=== PATIENT | female | born 2000 | race African-American/Black ===

== ENCOUNTER 2024-07-07 19:52 | Emergency (ER) | payer OTHER, SELFPAY ==
--- NOTE | ~2024-07-07 | XR_ITS ---
CHEST RADIOGRAPH, PA AND LATERAL CLINICAL HISTORY: sob, cough, asthma . COMPARISON: None available TECHNIQUE: PA and lateral views of the chest. FINDINGS The cardiomediastinal silhouette is unremarkable. Peribronchial thickening is identified. The remainder of the lungs are clear Visualized osseous structures and soft tissues are unremarkable. IMPRESSION: Peribronchial thickening, without focal infiltrate or effusion. Reviewed, dictated and finalized at location A. ER OPERATOR
[2024-07-07 20:01] VITALS: BP 128/85; PULSE 95; RESP 22; TEMP 36.7; O2SAT 100
[2024-07-07 21:09] VITALS: O2SAT 100
[2024-07-07 21:12] VITALS: BP 130/93; PULSE 96; RESP 16; TEMP 37; O2SAT 100
--- OUTSIDE RECORDS SUMMARY | 2024-07-07 21:22 | XMS_ITS | Clinical Summary ---
Author Organization [address] Address [address] [facility] 5th [place] [address] Care Team Providers Care Supervisor Cook Room Name Role Phone Unknown, Notinfile Primary Care Provider Unavail able Allergies No known active allergies Medications levonorgestreL (KYLEENA) IUD 19.5 mg by intrauterine route 4 Active montelukast (SINGULAIR) 10 mg tablet Take 1 tablet (10 mg total) by mouth daily 3 Active Active Problems No known active problems Encounters Date Type Department Care Team Description 04/28/2024 11:40 AM OPERATOR CATALYST CONCENTRATION Lab [facility] [address] [place] [address] Pre-employment health screening examination 04/28/2024 Orders Only [facility] Healthcare Occupatiuonal Health [address] [facility] Room [address] (Third Floor) [place] [address] Kenneth Laws MD Pre-employment health screening examination (Primary Dx) from Last 3 Months Immunizations Name Administration Dates Next Due DTaP 03/03/2006, 3,2002,06/05,2002 HPV9 11/25/2015,04/08/2015 Hep A, Adult 01/10/2014 Hep A, Unspecified 03/03/2012 Hep B / HiB 05/28/2003 Hep B Vaccine 2002,2002 Hib (PRP-OMP) 2002,2002,2002 IPV 03/03/2006, 3,2002,05/03 Influenza, Quadrivalent, Gema l Culture-based MDCK, Preservative Free, Antibiotic Free, Intramuscular 03/18/2022 Influenza, Quadrivalent, Spl it, Intramuscular 04/13/2014 Influenza, Quadrivalent, Spl it, Preservative Free, Intramuscular 03/27/2023,06/26/2020,03/19/2020,04/24,03/11/2017,04/08/2015 Influenza, Trivalent, Cell Culture-based MDCK, Preservative Free, Antibiotic Free, Intramuscular 02/01/2024 MMR 02/01/2007,01/31/2003 Meningococcal MCV4P (Menactra) 11/23/2018,2012 PPD TEST 01/05/2023,12/31/2021,12/18/2021 Palivizumab 2002 Pneumococcal Conjugate 7-Valent 05/28/20 03,2002,2002,05/03 Tdap 01/06/2023,01/23/2013 Varicella 01/10/2014,01/31/2003 Social History Tobacco Use Types Packs/Day Years Used Date Smoking Tobacco: Never Assessed Comments Unknown Sex and Gender Information Value Date Recorded Sex Assigned at Not on file Legal Sex Female 8:30 AM CDT Gender Identity Not on file Sexual Orientation Not on file Obstetrics History Last Filed Vital Signs Vital Sign Reading Time Taken Comments Blood Pressure 124/81 03/03/2024 6:33 PM CDT Pulse 80 03/03/2024 6:33 PM CDT Temperature 36.7 ??C (98 ??F) 03/03/2024 6:33 PM CDT Respiratory Rate 20 03/03/2024 6:33 PM CDT Oxygen Saturation 98% 03/03/2024 6:33 PM CDT Inhaled Oxygen Concentration - - Weight 59 kg (130 lb) 03/03/2024 6:33 PM CDT Height 167.6 cm (5' 6 ) 03/03/2024 6:33 PM CDT Body Mass Index 20.98 03/03/2024 6:33 PM CDT Plan of Treatment Health Maintenance Due Date Last Done Comments Cervical Cancer Screening 2002 Depression Screening 2002 Hepatitis C Screening 2002 Pneumococcal vaccine <65 (1 of 1 - PPSV23 or PCV20) 01/23/2008 05/28/2003, 2002, 2002, Additional history exists Meningococcal B Vaccine (1 o f 2 - Patient Seeks Protection) 2018 Regular Well Visit/Exam 18-64 01/23/2020 Covid-19 Vaccine (3 - 2023-2 5 season) 2024 01/02/2021, 12/12/2020 DTaP/Tdap/Td Vaccine (8 - Td or Tdap) 01/06/2033 01/06/2023, 01/23/2013, 03/03/2006, Additional history exists Varicella Vaccines Completed 01/10/2014, 01/31/2003 HPV Vaccines Completed 11/25/2015, 04/08/2015 Influenza Vaccine Completed 02/01/2024, , 03/18/2022, Additional history exists Procedures Procedure Name Priority Date/Time Associated Diagnosis Comments T-SPOT.TB Routine 04/28/2024 12:01 PM OPERATOR CATALYST CONCENTRATION Pre-employment health screening examination from Last 3 Months Results * T-SPOT.TB Blood (04/28/2024 12:01 PM OPERATOR CATALYST CONCENTRATION) [facility] T-SPOT.TB Negative SeeBelow Comment: Normal Value: Negative A negative test result does not exclude the possibility of exposure to or infection with Mycobacterium tuberculosis (M. tuberculosis). ??Patients with recent exposure to TB infected individuals exhibiting a negative T-SPOT.TB result should be considered for retesting within 6 weeks or if other relevant clinical symptoms indicate. ??Results from T-SPOT.TB testing must be used in conjunction with each individual's epidemiological history, current medical status, and results of other diagnostic evaluations. ??The T-SPOT.TB test is qualitative and results are reported as positive, borderline or negative, given that the test controls perform as expected. In line with the Centers for Disease Control and Prevention's 2010 recommendation to report quantitative measurements alongside the qualitative result, the laboratory provides spot counts for informational purposes only. ??The T-SPOT.TB test should not be interpreted as a quantitative test. T-SPOT.TB Panel A Spot [facility] 0 [facility] Panel B Spot Count 2 [facility] T-SPOT.TB Negative Control Passed [facility] T-SPOT.TB Positive Control Passed [facility] W[facility] Comment: Test Performed at: [facility] [address] [place], [place] ??[id number] ? GLENN SO,PHD Blood 04/28/2024 12:0 1 PM OPERATOR CATALYST CONCENTRATION 04/28/2024 12:16 PM OPERATOR CATALYST CONCENTRATION Narrative [facility] - 04/30/2024 3:02 PM OPERATOR CATALYST CONCENTRATION Bill to [facility] [address] Patient is employed by/enrolled at:->[facility] us Kenneth Laws MD LAB MICROBIOLOGY - GENERAL OR DERABLES Final Result [facility] [address] [facility] Department [place] [address] from Last [address] [facility] CHOICE PLUS Care Teams Supervisor Cook Room Relationship Specialty Start Date End Date Unknown, Notinfile PCP - General 02/25/24
--- OUTSIDE RECORDS SUMMARY | 2024-07-07 21:22 | XMS_ITS | Referral Summary ---
Author Organization [facility] [address] Address [address] [facility] 5th [place] [address] Care Team Providers Care Work Order Detailer Name Role Phone Unknown, Notinfile Primary Care Provider Unavail able Encounters Date Type Department Care Team Description 04/28/2024 11:40 AM COAT FELLER Lab [facility] [address] [place] [address] Pre-employment health screening examination 04/28/2024 Orders Only [facility] Healthcare Occupatiuonal Health [address] [place] [address] Room 3420 (Third Floor) [place] [address] Kenneth Laws MD Pre-employment health screening examination (Primary Dx) from Last 3 Months Allergies No known active allergies Medications levonorgestreL (KYLEENA) IUD 19.5 mg by intrauterine route 4 Active montelukast (SINGULAIR) 10 mg tablet Take 1 tablet (10 mg total) by mouth daily 3 Active Active Problems No known active problems Immunizations Name Administration Dates Next Due DTaP [...] on file Sexual Orientation Not on file Last Filed Vital Signs Vital Sign Reading [...] 03/03/2024 6:33 PM CDT Plan of Treatment Not on file Procedures Procedure Name Priority Date/Time Associated Diagnosis Comments T-SPOT.TB Routine 04/28/2024 12:01 PM COAT FELLER Pre-employment health screening examination from Last 3 Months Results * T-SPOT.TB Blood (04/28/2024 12:01 PM COAT FELLER) [facility] T-SPOT.TB Negative SeeBelow Comment: Normal Value: Negative [...] test. T-SPOT.TB Panel [facility] Spot [facility] Panel B Spot Count 2 [facility] T-SPOT.TB Negative Control Passed [facility] T-SPOT.TB Positive Control Passed [facility] Comment: Test Performed at: [facility] [address] [place] [address] ??[phone] ? GLENN SO,PHD Blood 04/28/2024 12:0 1 PM COAT FELLER 04/28/2024 12:16 PM COAT FELLER Narrative [facility] - 04/30/2024 3:02 PM COAT FELLER Bill to [facility] - [address] Patient is employed by/enrolled at:->[facility] us Kenneth Laws MD LAB MICROBIOLOGY - GENERAL OR DERABLES Final Result [facility] [address] [facility] Department [place] [address] from Last 3 Months Insurance [facility] CHOICE PLUS Care Teams Work Order Detailer Relationship Specialty Start Date End Date Unknown, Notinfile PCP - General 02/25/24
--- OUTSIDE RECORDS SUMMARY | 2024-07-07 21:23 | XMS_ITS | Referral Summary ---
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
--- OUTSIDE RECORDS SUMMARY | 2024-07-07 21:23 | XMS_ITS | Clinical Summary ---
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
--- OUTSIDE RECORDS SUMMARY | 2024-07-07 21:23 | XMS_ITS | Encounter Summary ---
Author Organization [facility] Address [address] [place] [address] Care Team Providers Care Bolt Maker Name Role Phone Tracy Weber MD Primary Care Provider [phone] Fely Quintanilla MD Unavailable Efrem Carranza MD Primary Care Provider [phone] Encounter Details Date Type Department Care Team (Late st Contact Info) Description 12/29/2021 E-Advice [facility] [place] [address] [place] [address] [place] [address] Tb skin test Social History Tobacco Use Types Packs/Day Years Used Date Smoking Tobacco: Never Smokeless Tobacco: Never Alcohol Use Standard Drinks/Week Comments Never 0 (1 standard drink = 0.6 oz pur e alcohol) PHQ-2 Answer Date Recorded Initial depression screening score: 0 12/04/2021 Exercise Vital Sign Answer Date Recorde d On average, how many days pe r week do you engage in moderate to strenuous exercise (like a brisk walk)? 0 days 12/04/2021 On average, how many minutes do you engage in exercise at this level? 0 min 12/04/2021 Alcohol Use Answer Date Recorded Audit C Total Score 0 12/04/2021 Inadequate Housing Answer Date Recorded Social Determinants: Housing (Overall Score Help er) 0 01/24/2019 Sexually Active Control Partners Comments Yes Male Sex and Gender Information Value Date Recorded Sex Assigned at Not on file Gender Identity Not on file Sexual Orientation Not on file Job Start Date Occupation Industry Not on file Not on file Not on file COVID-19 Exposure Response Date Recorded In the last 10 days, have yo u been in contact with someone who was confirmed or suspected to have Coronavirus/COVID-19? No / Unsure 12/04/2021 8:13 AM CDT documented as of this encounter Miscellaneous Notes * Telephone Encounter - Shabnam Prieto CMA - 12/31/2021 10:33 AM CDT Tb completed today for lab visit. documented in this encounter Plan of Treatment Not on file documented as of this encounter Visit Diagnoses Not on filedocumented in this encounter Care Teams Bolt Maker Relationship Specialty [place] [address] [place] [address] PCP - General Family Practice 12/29/21 01/11/23 Efrem Carranza MD [address] [place] [address] PCP - General Internal Medicine 01/12/23 [place] [address] [place] [address] Referring Provider Dermatology 01/11/23 documented as of this encounter
--- OUTSIDE RECORDS SUMMARY | 2024-07-07 21:23 | XMS_ITS | Referral Summary ---
Author Organization [facility] Address [address] [place] [address] Care Team Providers Care Manager Of Training And Development Name Role Phone Fely Quintanilla MD Unavailable Efrem Carranza MD Primary Care Provider [phone] Allergies Active Allergy Reactions Criticality Noted Date Comments Fish (Food Or Med) Other (See Comments) 011 Unknown Peanut (Food Or Med) Other (See Comments) 08/01 Unknown Tree Nuts (Food) Other (See Comments) 4 Medications Medication Sig Dispensed Refills Start Date End Date Status levalbuterol (XOPENEX) 1.25 MG/3ML nebulizer solution 1 unit dose per nebulizer every 4-6 hours as needed for cough or wheezing Active EPINEPHrine 0.3 MG/0.3ML auto-injectorIndicati ons:Peanut allergy Inject 0.3 mLs into the muscle as needed for Anaphylaxis. 2 each 1 08/03/2019 Active albuterol 108 (90 Base) MCG/ACT inhalerIndications:Mi ld intermittent asthma without complication (CMD) INHALE 2 PUFFS INTO THE LUNGS EVERY 4 HOURS NEEDED FOR SHORTNESS OF BREATH OR WHEEZING 17 each 03/02/2022 Active montelukast (SINGULAIR) 10 MG tabletIndications:Mil d intermittent asthma without complication (CMD) Take 1 tablet by mouth daily. 90 tablet 2 01/11/2023 Active Symbicort 80-4.5 MCG/ACT inhaler INHALE 2 PUFFS BY MOUTH TWICE A DAY. RINSE MOUTH AFTER EACH USE 06/02/2023 Active diclofenac (VOLTAREN) 50 MG EC tabletIndications:Yoshi n, upper back Take 1 tablet by mouth in the morning and 1 tablet in the evening. 20 tablet 10/19/2023 Active cyclobenzaprine (FLEXERIL) 5 MG tabletIndications:Yoshi n, upper back Take one tablet orally at hour of sleep 10 tablet 10/19/2023 Active diclofenac (VOLTAREN) 1 % gel Apply 4 g topically 4 times daily. 100 g 1 01/12/2024 Active Hospital, Clinic, or Other Facility Administered Medication Ordered Dose Route Frequency Start Date End Date Status levonorgestrel (KYLEENA) 19.5 MG intrauterine device 19.5 mgIndications:Encounter for IUD insertion 19.5 mg IU EVERY 5 YEARS 11/24/2023 Acti ve Active Problems Problem Noted Date Diagnosed Date IUD check up 12/23/2023 Encounter for IUD insertion 11/24/2023 Pain, upper back 11/13/2023 Well woman exam with routine gynecological exam 11/09/2023 Counseling for control regarding intrauterine device (IUD) 11/09/2023 Acne 10/28/2017 Alopecia 10/28/2017 Allergic rhinitis 01/10/2014 Eczema 01/10/2014 Mild intermittent asthma (CMD) 01/10/2014 Assessment & Plan (03/19/2020 3:07 PM CDT): Asthma is improving with treatment. The patient is experiencing no daytime asthma symptoms. She is experiencing no nighttime asthma symptoms. Discussed monitoring symptoms and use of quick-relief medications and contacting us early in the course of exacerbations.Controlled and stable. Cont with current regimen. F/U in 4-6 months or sooner as needed. Influenza Vaccine administered today Peanut allergy 03/03/2012 Immunizations Name Administration Dates Next Due DTaP 03/03/2006, 3,2002,06/05,2002 HIB Hep B 05/28/2003 HPV 9-Valent 11/25/2015,04/08/2015 Hep A, Unspecified formulation 01/10/2014,2011 Hep B, adult 2002,2002 Hepatitis A - Adult 01/10/2014 Hib (PRP-OMP) 2002,2002,2002 IPV 03/03/2006, 3,2002,05/03 Influenza, MDCK, quadrivalent, PF 03/18/2022 Influenza, split virus, quadrivalent 04/13/2014 Influenza, split virus, quad rivalent, PF 06/26/2020,03/19/2020,04/24/2018,03/11,04/08/2015 MMR 02/01/2007,01/31/2003 Meningococcal Conjugate MCV4 P (Menactra) 11/23/2018,01/23/2013 PPD 01/05/2023,12/31/2021,12/18/2021 Pneumococcal Conjugate 7 Valent 05/28/20 03,2002,2002,05/03 RSV - palivizumab 2002 Tdap 01/06/2023,01/23/2013 Varicella 01/10/2014,01/31/2003 Social History Tobacco Use Types Packs/Day Years Used Date Smoking Tobacco: Never Passive Smoke Exposure: Never Smokeless Tobacco: Never Tobacco Cessation:Counseling Given: Not Answered Alcohol Use Standard Drinks/Week Comments Yes 0 (1 standard drink = 0.6 oz pur e alcohol) occ PHQ-2 Answer Date Recorded Initial depression screening score: 0 01/12/2024 Exercise Vital Sign Answer Date Recorde d [...] 01/24/2019 Sexually Active Control Partners Comments Yes None Male Sex and Gender Information Value Date Recorded Sex Assigned at Not on file Gender Identity Not on file Sexual Orientation Not on file Job Start Date Occupation Industry Not on file Not on file Not on file Last Filed Vital Signs Vital Sign Reading Time Taken Comments Blood Pressure 120/77 01/12/2024 2:37 PM CDT Pulse 102 01/12/2024 2:37 PM CDT Temperature 36.4 ??C (97.5 ??F) 10/19/2023 1 1:01 AM CDT Respiratory Rate 18 01/12/2024 2:37 PM CDT Oxygen Saturation 97% 01/12/2024 2:37 PM CDT Inhaled Oxygen Concentration - - Weight 57.2 kg (125 lb 15.9 oz) 01/12/2024 2:37 PM CDT Height 163.8 cm (5' 4.5 ) 01/12/2024 2:37 PM CDT Body Mass Index 21.29 01/12/2024 2:37 PM CDT Plan of Treatment Not on file Procedures Procedure Name Priority Date/Time Associated Diagnosis Comments PAP ORDER Routine 11/09/2023 1:34 PM CDT Papanicolaou smear for cervical cancer screening CHLAMYDIA/GONORRHEA BY NUCLEIC ACID AMPLIFICATION Routine 01/17/2023 8:23 AM CDT Screening for STDs (sexually transmitted diseases) from Last 3 Months or Most Recently Relevant to Health Maintenance Results * Pap Test (11/09/2023 1:34 PM CDT) Case Report Gynecological Cytology ?Case: [id number] ? Authorizing Provider: ??Myrtle Rios APNP ??Collected: ? 11/09/2023 1334 ? Ordering Location: ? [facility] ?Received: ?11/10/2023 0759 ? Gynecology [place] ? [address] ? First Screen: ?Cortney Shane CT ? Specimen: ?ThinPrep Pap Test, Cervix ? 11/16/2023 3:38 PM CDT [facility] Interpretation Negative for intraepithelial lesion or malignancy. 11/16/2023 3:38 PM CDT [facility] Specimen Adequacy Satisfactory for evaluation, endocervical/barcenas sformation zone component absent. 11/16/2023 3:38 PM CDT [facility] Pap Educational Note The Pap test is a screening test with a well-recognized false negative rate. The best means available to lower the false negative rate and to detect early cervical lesions is a Pap test at regular intervals. All ThinPrep Paps will be reviewed with the aid of the ThinPrep Imaging System, unless otherwise specified. For assistance in current consensus management guidelines, refer to the [place] [employer] for Colposcopy and Cervical Pathology website at www.asccp.org First Screen performed at: [facility] [address] [place] [address] [facility] [id number] 11/16/2023 3:38 PM CDT [facility] [place] CERVIX UTERI STRUCTURE / Unknown 11/09/2023 1:34 PM CDT 11/10/2023 7:59 AM CDT Myrtle Rios CATY BKR LAB CYTOLOGY ORDERABLES Performing Organization Address City/[facility]/ZIP Co de Phone Number [facility] [address] [place] [address] * Chlamydia/Gonorrhea by Nucleic Acid Amplification (01/17/2023 8:23 AM CDT) Chlamydia trachomatis by Nucleic Acid Amplification Negative Negative [facility] 01/18/2023 8:12 PM CDT [facility] Neisseria gonorrhoeae by Nucleic Acid Amplification Negative Negative [facility] 01/18/2023 8:12 PM CDT [facility] Disclaimer The expected normal reference range is negative. Positive results are reported to the [facility] Department of Public Health. The Aptima Combo 2 Assay is not intended for the evaluation of suspected sexual abuse or for other medico-legal indications, nor has it been evaluated in adolescents less than 14 years of age. In these scenarios, and in clinical settings where the prevalence of infection is low, confirmatory testing on positive results is recommended. [facility] 01/18/2023 8:12 PM CDT [facility] Swab VAGINAL STRUCTURE / Unknown 01/17/2023 8:23 AM CDT 01/18/2023 2:22 AM CDT Hortencia Bryan CNP BKR LAB [place] DIAGN ORD Performing Organization Address City/[facility]/ZIP Co de Phone Number [facility] [address] [place] [address] from Last 3 Months or Most Recently Relevant to Health Maintenance Care Teams Manager Of Training And Development Relationship Specialty Start Date End Date Efrem Carranza MD [address] [place] [address] PCP - General Internal Medicine 01/12/23 [place] [address] [place], [place] [address] Referring Provider Dermatology 01/11/23
--- OUTSIDE RECORDS SUMMARY | 2024-07-07 21:23 | XMS_ITS | Clinical Summary ---
Author Organization [facility] Address [address] [place] [address] Care Team Providers Care Law Writer Name Role Phone Unavailable Primary Care Provider Unavailabl e Social History Tobacco Use Types Packs/Day Years Used Date Smoking Tobacco: Never Assessed Sex and Gender Information Value Date Recorded Sex Assigned at Not on file Gender Identity Not on file Sexual Orientation Not on file Plan of Treatment Not on file
--- OUTSIDE RECORDS SUMMARY | 2024-07-07 21:23 | XMS_ITS | Clinical Summary ---
Author Organization [facility] Address [address] [place] [address] Care Team Providers Care Wood Getter Name Role Phone Fely Quintanilla MD Unavailable Efrem Carranza MD Primary Care Provider [phone] Allergies Active Allergy Reactions Criticality Noted Date [...] - palivizumab 2002 Tdap 01/06/2023,01/23/2013 Varicella 01/10/2014,01/31/2003 Surgical History Surgery Date Site/Laterality Comments NO PAST SURGERIES Family History Medical History Relation Comments Allergic Rhinitis Mother Asthma Mother Glaucoma Mother Osteoarthritis Mother Relation Status Comments Mother Social History Tobacco Use Types Packs/Day Years [...] file Not on file Not on file Obstetrics History Para Term AB IAB SAB Ectopic Molar Multiple Living Live Births 0 0 0 0 0 0 0 0 0 0 0 0 Last Filed Vital Signs Vital Sign Reading [...] 01/12/2024 2:37 PM CDT Plan of Treatment Health Maintenance Due Date Last Done Comments Pneumococcal Vaccine 0-49 (1 of 2 - PCV) 01/23/2008 05/28/2003, 2002, 2002, Additional history exists Chlamydia and Gonorrhea Scre ening (if sexually active) 01/18/2024 01/17/2023 COVID-19 Vaccine (2023-2 5 season) 2024 01/02/2021, 12/12/2020 Influenza Vaccine (#1) 2024 , 03/18/2022, 06/26/2020, Additional history exists Depression Screening 01/11/2025 01/12/2024 Cervical Cancer Screening 11/08/2026 Pap Smear 11/08/2026 11/09/2023 DTaP/Tdap/Td Vaccine (8 - Td or Tdap) 01/06/2033 01/06/2023, 01/23/2013, 03/03/2006, Additional history exists Hepatitis B Vaccine Completed 05/28/2003, 2002, 2002 Varicella Vaccine Completed 01/10/2014, 01/31/2003 HPV Vaccine Completed 11/25/2015, 04/08/2015 Meningococcal Vaccine Completed 11/23/2018, 013 Procedures Procedure Name Priority Date/Time Associated Diagnosis Comments PAP ORDER Routine 11/09/2023 1:34 PM CDT Papanicolaou smear for cervical cancer screening CHLAMYDIA/GONORRHEA BY NUCLEIC ACID AMPLIFICATION Routine 01/17/2023 8:23 AM CDT Screening for STDs (sexually transmitted diseases) from Last 3 Months or Most Recently Relevant to Health Maintenance Results * Pap Test (11/09/2023 1:34 PM CDT) Case Report Gynecological Cytology ?Case: [id number] ? Authorizing Provider: ??Myrtle Rios APNP ??Collected: ? 11/09/2023 1334 ? Ordering Location: ? [facility] ?Received: ?11/10/2023 0759 ? Gynecology [place] ? [address] ? First Screen: ?[place]ney Shane, [place] ? Specimen: ?ThinPrep Pap Test, Cervix ? 11/16/2023 3:38 PM CDT [facility] Interpretation Negative for intraepithelial lesion or malignancy. 11/16/2023 3:38 PM CDT [facility] Specimen Adequacy Satisfactory for evaluation, endocervical/barcenas sformation zone component absent. 11/16/2023 3:38 PM CDT [facility] Pap Educational Note The [...] current consensus management guidelines, refer to the [place] Society for Colposcopy and Cervical Pathology website at www.asccp.org First Screen performed at: [facility] [address] [facility] [address] 11/16/2023 3:38 PM CDT [facility] [place] CERVIX UTERI STRUCTURE / Unknown 11/09/2023 1:34 PM CDT 11/10/2023 7:59 AM CDT Myrtle BYRNE BKR LAB CYTOLOGY ORDERABLES [facility] [address] [place] [address] * Chlamydia/Gonorrhea by Nucleic Acid Amplification (01/17/2023 8:23 AM CDT) Chlamydia trachomatis by Nucleic Acid Amplification Negative Negative [facility] - PNTH1 01/18/2023 8:12 PM CDT [facility] Neisseria gonorrhoeae by Nucleic Acid Amplification Negative Negative [facility] - PNTH1 01/18/2023 8:12 PM CDT [facility] Disclaimer The expected normal reference range is negative. Positive results are reported to the [facility] Department of Public Health. The Aptima Combo [...] - PNTH2 01/18/2023 8:12 PM CDT [facility] Swab VAGINAL STRUCTURE / Unknown 01/17/2023 8:23 AM CDT 01/18/2023 2:22 AM CDT Hortencia Cadena-Carmelita LASTING ROOM SUPERVISOR BKR LAB MOLEC DIAGN ORD Performing Organization Address City/State/[facility] Co de Phone Number [facility] [address] [place] [address] from Last 3 Months or Most Recently Relevant to Health Maintenance Care Teams Wood Getter Relationship Specialty Start Date End Date Efrem Carranza MD [address] [place] [address] PCP - General Internal Medicine 01/12/23 [place] [address] [place], [place] [address] Referring Provider Dermatology 01/11/23
--- NOTE | 2024-07-07 22:03 | ED.ASTHMA ---
HPI - Asthma General Chief Complaint: Asthma Stated Complaint: asthma attack Time Seen by Provider: 07/07/24 20:52 Source: patient Mode of arrival: ambulatory Limitations: no limitations History of Present Illness HPI Narrative: Patient is a 24-year-old female, with past medical history of asthma, who presents the ED with report of cough. Patient reports she has had a persistent cough/URI symptoms over the last 2 weeks. Over the last 1 week, her cough has become incessant. She states she goes through coughing fits where she does have trouble breathing, otherwise denies significant shortness of breath or with exertion. Is typically able to use her albuterol inhaler at home with improvement, but states this has not been helping her recently. She does also have a nebulizer machine. Denies chest pain. Denies fevers. Related Data Allergies Allergy/AdvReac Type Severity Reaction Status Date / Time shellfish derived Allergy Severe Anaphylaxis Verified 07/07/24 22:41 tree nut Allergy Severe Anaphylaxis Verified 07/07/24 22:41 Review of Systems Review of Systems: All systems reviewed & are unremarkable except as noted in HPI. All systems reviewed & are unremarkable except as noted in HPI and below Exam Narrative: GENERAL: Well appearing, well-nourished, non-toxic, in no acute distress. HEAD: Normocephalic, atraumatic. RESPIRATORY: Airway patent, respirations nonlabored. Frequent coughing on exam. Occasional faint end-expiratory wheezing bilaterally. No tachypnea or distress. CARDIOVASCULAR: Regular rate and rhythm without murmurs, rubs, or gallops. MUSCULOSKELETAL: Moves all extremities. No gross deformities. No peripheral edema. SKIN: Warm, dry, normal color. NEURO: A&O X3. Speech clear. Cranial nerves II-XII grossly intact. Steady gait. No ataxic movements. PSYCHIATRIC: Appropriate mood and affect. Normal interaction. Course Vital Signs Vital signs: Vital Signs Temperature 98.1 F 07/07/24 20:01 Pulse Rate 95 07/07/24 20:01 Respiratory Rate 22 H 07/07/24 20:01 Blood Pressure 128/85 07/07/24 20:01 Pulse Oximetry 100 07/07/24 20:01 Oxygen Delivery Room Air 07/07/24 20:01 Temperature 97.9 F 07/07/24 22:56 Pulse Rate 97 07/07/24 22:56 Respiratory Rate 18 07/07/24 22:56 Blood Pressure 121/81 07/07/24 22:56 Pulse Oximetry 99 07/07/24 22:56 Oxygen Delivery Room Air 07/07/24 21:09 MDM - Asthma MDM Narrative Medical decision making narrative: Chest x-ray showing peribronchial thickening, no focal consolidation. Viral swabs are negative. Will treat for asthma exacerbation. Given dose of steroids in the ED. Will discharge with Medrol Dosepak. Offered to give her nebulizer treatment however patient declined, states she will do this at home herself. Will also prescribe Tessalon Perles. Patient denies significant shortness of breath or chest pain to suggest need for further labs or imaging at this time. O2 stable on RA. She is in agreement. States this feels typical of her previous asthma exacerbations. Recommended that she follow-up closely with primary care doctor for further evaluation. Discussed strict return precautions. She voiced understanding. Discharged in stable condition. Medical Records Attestation: I reviewed the patient's medical records. Lab Data Attestation: I reviewed the patient's lab results. Labs: Lab Results 07/07/24 Range/Units 21:58 Influenza A (RT-PCR) Negative (Negative) Influenza B (RT-PCR) Negative (Negative) RSV (RT-PCR) Negative (Negative) SARS-CoV-2 RNA (RT-PCR) Negative (Negative) Imaging Data Attestation: I personally reviewed and interpreted this imaging study as follows: Radiologist's impression: ITS Impressions Chest X-Ray 07/07/24 21:14 IMPRESSION: Peribronchial thickening, without focal infiltrate or effusion. Discharge Plan Discharge Clinical Impression: Asthma with acute exacerbation Qualifiers: Asthma severity: unspecified severity Asthma persistence: intermittent Qualified Code(s): J45.21 - Mild intermittent asthma with (acute) exacerbation Cough Qualifiers: Cough type: unspecified Qualified Code(s): R05.9 - Cough, unspecified Patient Disposition: Home, Self-Care Condition: Stable Instructions: Antibiotic Form, Asthma (ED), Cold Symptoms (ED), Acute Cough (ED) Additional Instructions: Take steroids as prescribed. Continue inhaler and nebulizer treatments as prescribed. Your chest x-ray did not show any evidence of pneumonia. Your testing for COVID, influenza, RSV were negative. Utilize Tessalon Perles as needed for cough. Recommend [id number] cough and cold medicines as needed -Delsym, Mucinex, DayQuil, NyQuil, Sudafed, Robitussin, TheraFlu. Follow with primary care doctor for further evaluation. Return to the ED if you experience chest pain, difficulty breathing, unable to keep down food or drink, severe pain, or any other symptoms of concern. Patient Language: Bengali Prescriptions: New benzonatate 200 mg capsule 200 mg PO TID PRN (Reason: cough) Qty: 15 0RF prednisone 50 mg tablet 50 mg PO DAILY Qty: 5 0RF Follow-up/Referrals: Gold Vences MD [Physician] - (PRIMARY CARE) PHYSICIAN NOT ON STAFF,NONSTAFF [Primary Care Provider] - Time of Disposition: 22:53
[2024-07-07] MEDS: predniSONE 20 MG TABLET 60 MG PO (22:11)
[2024-07-07 22:44] LABS: Influenza A QL RT-PCR Negative (Negative); Influenza B QL RT-PCR Negative (Negative); RSV RNA, RT-PCR Negative (Negative); SARS-CoV-2 RNA PCR Negative (Negative)
[2024-07-07 22:56] VITALS: BP 121/81; PULSE 97; RESP 18; TEMP 36.6; O2SAT 99
== END 2024-07-07 23:05 | disposition home or self-care (01) ==
PROVIDERS: Emergency Provider Physician Assistant
DX: J45.21 Mild intermittent asthma with (acute) exacerbation (principal)
CPT/HCPCS: 71046; 87637; 96360; 99283; J7512

== ENCOUNTER 2024-08-20 08:39 | Emergency (ER) | payer OTHER, SELFPAY ==
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
--- NOTE | ~2024-08-20 | CT_ITS ---
Noncontrast CT scan of the cervical spine Technique: Multiple contiguous axial [address] images of the cervical spine were obtained and rec onstructed in 2D sagittal and coronal planes on the acquisition scanner. Dose reduction technique was used on this scan by utilizing automated exposure control, adjustment of the mA and/or kV according to patient size. The dose-length product (DLP) was 165.47 mGy-cm. Clinical History: Pain Findings: No fractures or dislocations. Unremarkable visualized bony structures. The intervertebral disc spaces are preserved. No prevertebral soft tissue swelling. Impression: No fracture or subluxation of the cervical spine. Reviewed, dictated and finalized at location . Impression: No fracture or subluxation of the cervical spine.
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
--- OUTSIDE RECORDS SUMMARY | 2024-08-20 08:41 | XMS_ITS | Referral Summary ---
Author Organization [address] Address [address] [facility] 5th [place] [address] Care Team Providers Care Multiskill Operator Name Role Phone Unknown, Notinfile Primary Care Provider Unavail able Encounters Date Type Department Care Team Description 07/13/2024 1:25 PM HYDRO ELECTRIC STATION OPERATOR Lab [facility] [address] [place] [address] Pre-employment health screening examination 07/13/2024 Orders Only [facility] Healthcare Occupatiuonal Health [address] [place] [address] Room 34[address] (Third Floor) [place] [address] Kenneth Laws MD Pre-employment health screening examination (Primary Dx) from Last 3 Months Allergies No known active allergies Medications levonorgestreL (KYLEENA) IUD 19.5 mg by intrauterine route 4 Active montelukast (SINGULAIR) 10 mg tablet Take 1 tablet (10 mg total) by mouth daily 3 Active Active Problems No known active problems Immunizations Immunization Administration Dates Next Due DTaP 03/03/2006, 3,2002,06/05,2002 [...] 80 03/03/2024 6:33 PM CDT Temperature 36.7 C (98 F) 03/03/2024 6:33 PM CDT Respiratory Rate 20 [...] Priority Date/Time Associated Diagnosis Comments T-SPOT.TB Routine 07/13/2024 1:35 PM HYDRO ELECTRIC STATION OPERATOR Pre-employment health screening examination from Last 3 Months Results * T-SPOT.TB Blood (07/13/2024 1:35 PM HYDRO ELECTRIC STATION OPERATOR) [facility] T-SPOT.TB Negative SeeBelow Comment: Normal Value: Negative A negative test result does not exclude the possibility of exposure to or infection with Mycobacterium tuberculosis (M. tuberculosis). Patients with recent exposure to TB infected individuals exhibiting a negative T-SPOT.TB result should be considered for retesting within 6 weeks or if other relevant clinical symptoms indicate. Results from T-SPOT.TB testing must be used in conjunction with each individual's epidemiological history, current medical status, and results of other diagnostic evaluations. The T-SPOT.TB test is qualitative and results are reported as positive, borderline or negative, given that the test controls perform as expected. In line with the Centers for Disease Control and Prevention's 2010 recommendation to report quantitative measurements alongside the qualitative result, the laboratory provides spot counts for informational purposes only. The T-SPOT.TB test should not be interpreted as a quantitative test. T-SPOT.TB Panel A Spot Count 0 [facility] T-SPOT.TB Panel B Spot Count 0 [facility] T-SPOT.TB Negative Control Passed [facility] T-SPOT.TB Positive Control Passed [facility] Comment: Test Performed at: [facility] [address] [place] [id number] GLENN SO,PHD Blood 07/13/2024 1:35 PM HYDRO ELECTRIC STATION OPERATOR 07/13/2024 1:52 PM HYDRO ELECTRIC STATION OPERATOR Narrative [facility] - 07/15/2024 2:13 PM HYDRO ELECTRIC STATION OPERATOR Bill to [facility] - 1520 Patient is employed by/enrolled at:->[facility] us Kenneth Laws MD LAB MICROBIOLOGY - GENERAL OR DERABLES Final Result [facility] [address] [facility] Department [place] [address] from Last 3 Months Insurance [facility] CHOICE PLUS Care Teams Multiskill Operator Relationship Specialty Start Date End Date Unknown, Notinfile PCP - General 02/25/24
--- OUTSIDE RECORDS SUMMARY | 2024-08-20 08:41 | XMS_ITS | Clinical Summary ---
Author Organization [address] Address [address] [facility] 5th [place] [address] Care Team Providers Care Health Care Manager Name Role Phone Unknown, Notinfile Primary Care Provider Unavail able Allergies No known active allergies Medications levonorgestreL (KYLEENA) IUD 19.5 mg by intrauterine route 4 Active montelukast (SINGULAIR) 10 mg tablet Take 1 tablet (10 mg total) by mouth daily 3 Active Active Problems No known active problems Encounters Date Type Department Care Team Description 07/13/2024 1:25 PM GEAR KEEPER Lab [facility] [place] [address] Pre-employment health screening examination 07/13/2024 Orders Only [facility] Occupatiuonal Health [address] [facility] Room [address] (Third Floor) [place] [address] Kenneth Laws MD Pre-employment health screening examination (Primary Dx) from Last 3 Months Immunizations Immunization Administration Dates Next Due DTaP [...] Pneumococcal vaccine <65 (1 of 1 - PPSV23) 01/23/2008 05/28/2003, 2002, 2002, Additional history exists Meningococcal B Vaccine (1 o f 2 - Standard) 2018 Regular Well Visit/Exam 18-64 01/23/2020 Covid-19 Vaccine (3 - 2023-2 5 season) 2024 01/02/2021, 12/12/2020 DTaP/Tdap/Td Vaccine (8 - Td or Tdap) 01/06/2033 01/06/2023, 01/23/2013, 03/03/2006, Additional history exists Hepatitis B Screening Completed 05/28/2003 , 2002, 2002 Varicella Vaccines Completed 01/10/2014, 01/31/2003 HPV Vaccines Completed 11/25/2015, 04/08/2015 Influenza Vaccine Completed 02/01/2024, , 03/18/2022, Additional history exists Procedures Procedure Name Priority Date/Time Associated Diagnosis Comments T-SPOT.TB Routine 07/13/2024 1:35 PM GEAR KEEPER Pre-employment health screening examination from Last 3 Months Results * T-SPOT.TB Blood (07/13/2024 1:35 PM GEAR KEEPER) [facility] T-SPOT.TB Negative SeeBelow Comment: Normal [...] test. T-SPOT.TB Panel A Spot Count 0 [facility] T-SPOT.TB Panel B Spot Count 0 [facility] T-SPOT.TB Negative Control Passed [facility] T-SPOT.TB Positive Control Passed [facility] Comment: Test Performed at: [facility] [address] [place] [address] GLENN SO,PHD Blood 07/13/2024 1:35 PM GEAR KEEPER 07/13/2024 1:52 PM GEAR KEEPER Narrative [facility] - 07/15/2024 2:13 PM GEAR KEEPER Bill to [facility] 152[employer]ble Patient is employed by/enrolled at:->[facility] us Kenneth Laws MD LAB MICROBIOLOGY - GENERAL OR DERABLES Final Result [facility] [address] [facility] Department of Laboratories [place], [place] [id number] from Last 3 Months Insurance [facility] CHOICE PLUS [facility] HMO/PPO Address: [address] [address] [place] [address] Care Teams Health Care Manager Relationship Specialty Start Date End Date Unknown, Notinfile PCP - General 02/25/24
--- OUTSIDE RECORDS SUMMARY | 2024-08-20 08:42 | XMS_ITS | Referral Summary ---
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
--- OUTSIDE RECORDS SUMMARY | 2024-08-20 08:42 | XMS_ITS | Referral Summary ---
Author Organization [facility] Address [address] [place] [address] Care Team Providers Care Level Vial Sealer Name Role Phone Fely Quintanilla MD Unavailable Efrem Carranza MD Primary Care Provider [phone] Allergies Active Allergy Reactions Criticality Noted Date [...] 102 01/12/2024 2:37 PM CDT Temperature 36.4 C (97.5 F) 10/19/2023 11:01 AM CDT Respiratory Rate 18 01/12/2024 2:37 [...] 1:34 PM CDT) Case Report Gynecological Cytology Case: [id number] Authorizing Provider: Myrtle Rios APNP Collected: 11/09/2023 1334 Ordering Location: [facility] Received: 11/10/2023 [facility]necology [address] First Screen: Cortney Shane CT Specimen: ThinPrep Pap Test, Cervix 11/16/2023 3:38 PM CDT [facility] Interpretation Negative for intraepithelial lesion or malignancy. 11/16/2023 3:38 PM CDT [facility] Specimen Adequacy Satisfactory for evaluation, endocervical/barcenas sformation zone component absent. 11/16/2023 3:38 PM CDT [facility] Pap Educational Note The Pap [...] current consensus management guidelines, refer to the [place] Society for Colposcopy and Cervical Pathology website at www.asccp.org First Screen performed at: [facility] [address] [facility] [id number] 11/16/2023 3:38 PM CDT [facility] [place] CERVIX UTERI STRUCTURE / Unknown 11/09/2023 1:34 PM CDT 11/10/2023 7:59 AM CDT Myrtle BYRNE BKR LAB CYTOLOGY ORDERABLES Performing Organization Address [facility] Co de Phone Number [facility] [address] [place] [address] * Chlamydia/Gonorrhea by Nucleic Acid Amplification (01/17/2023 8:23 AM CDT) Chlamydia trachomatis by Nucleic Acid Amplification Negative Negative [facility] - PNTH1 01/18/2023 8:12 PM CDT [facility] Neisseria gonorrhoeae by Nucleic Acid Amplification Negative Negative [facility] - PNTH1 01/18/2023 8:12 PM CDT [facility] Disclaimer The expected normal reference range is negative. Positive results are reported to the [facility] Department of Public Health. The Aptima Combo [...] [facility] - PNTH2 01/18/2023 8:12 PM CDT [facility] Swab VAGINAL STRUCTURE / Unknown 01/17/2023 8:23 AM CDT 01/18/2023 2:22 AM CDT Hortencia Bryan CNP BKR LAB MOLEC DIAGN ORD Performing Organization Address City/[facility]/ZIP Co de Phone Number [facility] [address] [place] [address] from Last 3 Months or Most Recently Relevant to Health Maintenance Care Teams Level Vial Sealer Relationship Specialty Start Date End Date Efrem Carranza MD [address] [place], [place] [address] PCP - General Internal Medicine 01/12/23 [place] [address] [place] [address] Referring Provider Dermatology 01/11/23
--- OUTSIDE RECORDS SUMMARY | 2024-08-20 08:42 | XMS_ITS | Clinical Summary ---
Author Organization [facility] Address [address] [place] [address] Care Team Providers Care Class A Regional Truck Driver Name Role Phone Unavailable Primary Care Provider Unavailabl e Social History Tobacco Use Types Packs/Day Years Used Date Smoking Tobacco: Never Assessed Comments Unknown Sex and Gender Information Value Date Recorded Sex Assigned at Not on file Legal Sex Female 10:03 PM EST Gender Identity Not on file Sexual Orientation Not on file Plan of Treatment Not on file
--- OUTSIDE RECORDS SUMMARY | 2024-08-20 08:42 | XMS_ITS | Encounter Summary ---
Author Organization [facility] Address [address] [place] [address] Care Team Providers Care Pier Hand Helper Name Role Phone Tracy Weber MD Primary Care Provider [phone] Fely Quintanilla MD Unavailable Efrem Carranza MD Primary Care Provider [phone] Encounter Details Date Type Department Care Team (Late st Contact Info) Description 12/29/2021 E-Advice [facility] [place] [address] [place] [address] [place] [address] Tb skin test Social History Tobacco Use [...] on filedocumented in this encounter Care Teams Pier Hand Helper Relationship Specialty [place] [address] [place] [address] PCP - General Family Practice 12/29/21 01/11/23 Efrem Carranza MD [address] [place] [address] PCP - General Internal Medicine 01/12/23 [place] [address] [place] [address] Referring Provider Dermatology 01/11/23 documented as of this encounter
--- OUTSIDE RECORDS SUMMARY | 2024-08-20 08:42 | XMS_ITS | Clinical Summary ---
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
--- OUTSIDE RECORDS SUMMARY | 2024-08-20 08:42 | XMS_ITS | Clinical Summary ---
Author Organization [facility] Address [address] [place] [address] Care Team Providers Care Digital X Ray Service Engineer Name Role Phone Fely Quintanilla MD Unavailable Efrem Carranza MD Primary Care Provider [phone] Allergies Active Allergy Reactions Criticality Noted Date [...] Health Maintenance Due Date Last Done Comments Meningococcal Serogroup B Va ccine (1 of 2 - Standard) 2018 Pneumococcal Vaccine 0-49 (1 of 2 - PCV) 2021 05/28/2003, 2002, 2002, Additional history exists Chlamydia and Gonorrhea Scre ening (if sexually active) 01/18/2024 01/17/2023 COVID-19 Vaccine (3 - 2023-2 5 season) 2024 01/02/2021, 12/12/2020 Influenza Vaccine (#1) 2024 , 03/18/2022, 06/26/2020, Additional history exists Depression Screening 01/11/2025 01/12/2024 Cervical Cancer Screening 11/08/2026 Pap Smear 11/08/2026 11/09/2023 DTaP/Tdap/Td Vaccine (8 - Td or Tdap) 01/06/2033 01/06/2023, 01/23/2013, 03/03/2006, Additional history exists Hepatitis B Vaccine Completed 05/28/2003, 2002, 2002 Hepatitis A Vaccine Completed 01/10/2014, 01/10/2014, 03/03/2012 Varicella Vaccine Completed 01/10/2014, 01/31/2003 HPV Vaccine [...] PM CDT) Case Report Gynecological Cytology Case: [id number] Authorizing Provider: Myrtle Rios APNP Collected: 11/09/2023 1334 Ordering Location: [facility] Obstetrics & Received: 11/10/2023 [facility] Gynecology [place] [address] First Screen: Cortney Shane CT Specimen: ThinPrep Pap Test, Cervix 11/16/2023 3:38 PM CDT [facility] Interpretation Negative for intraepithelial lesion or malignancy. 11/16/2023 3:38 PM CDT [facility] Specimen Adequacy Satisfactory for evaluation, endocervical/barcenas sformation zone component absent. 11/16/2023 3:38 PM CDT [facility] Pap Educational Note The Pap [...] current consensus management guidelines, refer to the [place] Society for Colposcopy and Cervical Pathology website at www.asccp.org First Screen performed at: [facility] [address] [phone] 11/16/2023 3:38 PM CDT [facility] [place] CERVIX UTERI STRUCTURE / Unknown 11/09/2023 1:34 PM CDT 11/10/2023 7:59 AM CDT Myrtle Rios CATY BKR LAB CYTOLOGY ORDERABLES Performing Organization Address [facility] Co de Phone Number ACL [facility] [address] [place] [address] * Chlamydia/Gonorrhea by Nucleic Acid Amplification (01/17/2023 8:23 AM CDT) Chlamydia trachomatis by Nucleic Acid Amplification Negative Negative [place] - PNTH1 01/18/2023 8:12 PM CDT [facility] [place] [facility] Neisseria gonorrhoeae by Nucleic Acid Amplification Negative Negative [place] [facility] 01/18/2023 8:12 PM CDT [facility] [place] [facility] Disclaimer The expected normal reference range is negative. Positive results are reported to the [facility] Department of Public Health. The Aptima Combo [...] [place] - PNTH2 01/18/2023 8:12 PM CDT [facility] Swab VAGINAL STRUCTURE / Unknown 01/17/2023 8:23 AM CDT 01/18/2023 2:22 AM CDT Hortencia Bryan CNP BKR LAB MOLEC DIAGN ORD Performing Organization Address City/[facility] Co de Phone Number [facility] [place] [facility] [address] [place] [address] from Last 3 Months or Most Recently Relevant to Health Maintenance Care Teams Digital X Ray Service Engineer Relationship Specialty Start Date End Date Efrem Carranza MD [address] [place], [place] [address] PCP - General Internal Medicine 01/12/23 [place] [address] [place] [address] Referring Provider Dermatology 01/11/23
[2024-08-20 08:43] VITALS: BP 139/96; PULSE 72; RESP 15; TEMP 36.4; O2SAT 99
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
--- OUTSIDE RECORDS SUMMARY | 2024-08-20 09:27 | XMS_ITS | Clinical Summary ---
Author Organization [address] Address [address] [facility] [address] [place] [address] Care Team Providers Care Body And Frame Technician Name Role Phone Unknown, Notinfile Primary Care Provider Unavail able Allergies No known active allergies Medications levonorgestreL (KYLEENA) IUD 19.5 mg by intrauterine route 4 Active montelukast (SINGULAIR) 10 mg tablet Take 1 tablet (10 mg total) by mouth daily 3 Active Active Problems No known active problems Encounters Date Type Department Care Team Description 07/13/2024 1:25 PM MAINTENANCE WORKER SWIMMING POOL Lab [facility] Lab [facility] [place] [address] Pre-employment health screening examination 07/13/2024 Orders Only [facility] Occupatiuonal Health [address] [facility] Room [address] (Third Floor) [place] [address] Kenneth Laws MD Pre-employment health screening examination [...] Diagnosis Comments T-SPOT.TB Routine 07/13/2024 1:35 PM MAINTENANCE WORKER SWIMMING POOL Pre-employment health screening examination from Last 3 Months Results * T-SPOT.TB Blood (07/13/2024 1:35 PM MAINTENANCE WORKER SWIMMING POOL) [facility] T-SPOT.TB Negative SeeBelow Comment: Normal Value: Negative [...] Control Passed MITZI Comment: Test Performed at: [facility] [address] [place] [address] GLENN SO,PHD Blood 07/13/2024 1:35 PM MAINTENANCE WORKER SWIMMING POOL 07/13/2024 1:52 PM MAINTENANCE WORKER SWIMMING POOL Narrative MITZI - 07/15/2024 2:13 PM MAINTENANCE WORKER SWIMMING POOL Bill to [facility] Language Logistics 152Telecardia Patient is employed by/enrolled at:->[facility] us Kenneth Laws MD LAB MICROBIOLOGY - GENERAL OR DERABLES Final Result MITZI [address] [facility] Department of Laboratories [place], [place] [id number] from Last 3 Months Insurance [facility] [employer] PL[employer] Care Teams Body And Frame Technician Relationship Specialty Start Date End Date Unknown, Notinfile PCP - General 02/25/24
--- OUTSIDE RECORDS SUMMARY | 2024-08-20 09:27 | XMS_ITS | Referral Summary ---
Author Organization [address] Address [address] [facility] 5th [place] [address] Care Team Providers Care Co Op Name Role Phone Unknown, Notinfile Primary Care Provider Unavail able Encounters Date Type Department Care Team Description 07/13/2024 1:25 PM DIRECTOR BROADCAST Lab [facility] Lab [address] [place] [address] Pre-employment health screening examination 07/13/[address] [facility] Healthcare Occupatiuonal Health [address] [place] [address] Room [address] (Third Floor) [place] [address] Kenneth Laws MD Pre-employment health screening examination [...] Diagnosis Comments T-SPOT.TB Routine 07/13/2024 1:35 PM DIRECTOR BROADCAST Pre-employment health screening examination from Last 3 Months Results * T-SPOT.TB Blood (07/13/2024 1:35 PM DIRECTOR BROADCAST) [facility] T-SPOT.TB Negative SeeBelow Comment: Normal Value: Negative [...] test. T-SPOT.TB Panel A Spot Count 0 [facility] T-SPOT.TB Panel B Spot Count 0 [facility] T-SPOT.TB Negative Control Passed MITZI T-SPOT.TB Positive Control Passed MITZI Comment: Test Performed at: [facility] [employer] [address] [place] [id number] GLENN SO,PHD Blood 07/13/2024 1:35 PM DIRECTOR BROADCAST 07/13/2024 1:52 PM DIRECTOR BROADCAST Narrative [facility] - 07/15/2024 2:13 PM DIRECTOR BROADCAST Bill to [facility] - [address] Patient is employed by/enrolled at:->[facility] us Kenneth Laws MD LAB MICROBIOLOGY - GENERAL OR DERABLES Final Result MITZI [address] [facility] [place] [address] from Last 3 Months Insurance [facility] CHO[employer] PL[employer] Care Teams Co Op Relationship Specialty Start Date End Date Unknown, Notinfile PCP - General 02/25/24
--- OUTSIDE RECORDS SUMMARY | 2024-08-20 09:29 | XMS_ITS | Referral Summary ---
Author Organization [facility] Address [address] [place] [address] Care Team Providers Care Stage Rigger Name Role Phone Unavailable Primary Care Provider Unavailabl e Social History Tobacco Use Types Packs/Day Years Used Date Smoking Tobacco: Never Assessed Comments Unknown Sex and Gender Information Value Date Recorded Sex Assigned at Not on file Legal Sex Female 4:33 PM RAWHIDE BONE ROLLER Gender Identity Not on file Sexual Orientation Not on file Plan of Treatment Not on file Insurance GENERIC IPA[place] [address]
--- OUTSIDE RECORDS SUMMARY | 2024-08-20 09:29 | XMS_ITS | Clinical Summary ---
Author Organization [facility] Address [address] [place] [address] Care Team Providers Care Underground Mine Machinery Mechanic Name Role Phone Fely Quintanilla MD Unavailable Efrem Carranza MD Primary Care Provider [phone] Allergies Active Allergy Reactions Criticality Noted Date [...] PM CDT) Case Report Gynecological Cytology Case: [id number] Authorizing Provider: Myrtle Rios APNP Collected: 11/09/2023 1334 Ordering Location: [facility] Obstetrics & Received: 11/10/2023 [facility] Gynecology [place] [address] First Screen: Cortney Shane CT Specimen: ThinPrep Pap Test, Cervix 11/16/2023 3:38 PM CDT [facility] Interpretation Negative for intraepithelial lesion or malignancy. 11/16/2023 3:38 PM CDT [facility] Specimen Adequacy Satisfactory for evaluation, endocervical/barcenas sformation zone component absent. 11/16/2023 3:38 PM CDT [facility] Pap Educational Note The Pap [...] current consensus management guidelines, refer to the [place] Society for Colposcopy and Cervical Pathology website at www.asccp.org First Screen performed at: [facility] [address] [phone] 11/16/2023 3:38 PM CDT [facility] [place] CERVIX UTERI STRUCTURE / Unknown 11/09/2023 1:34 PM CDT 11/10/2023 7:59 AM CDT Myrtle Rios CATY BKR LAB CYTOLOGY ORDERABLES Performing Organization Address [facility] Co de Phone Number ACL [facility] [address] [place] [address] * Chlamydia/Gonorrhea by Nucleic Acid Amplification (01/17/2023 8:23 AM CDT) Chlamydia trachomatis by Nucleic Acid Amplification Negative Negative [place] [facility] PNTH1 01/18/2023 8:12 PM CDT [facility] [place] [facility] Neisseria gonorrhoeae by Nucleic Acid Amplification Negative Negative [place] - PNTH1 01/18/2023 8:12 PM CDT [facility] [place] [facility] Disclaimer The expected normal reference range is negative. Positive results are reported to the [facility] Department of Public Health. The Aptima Combo [...] [place] - PNTH2 01/18/2023 8:12 PM CDT [facility] Swab VAGINAL STRUCTURE / Unknown 01/17/2023 8:23 AM CDT 01/18/2023 2:22 AM CDT Hortencia Bryan CNP BKR LAB MOLEC DIAGN ORD Performing Organization Address City/[facility] Co de Phone Number [facility] [place] [facility] [address] [place] [address] from Last 3 Months or Most Recently Relevant to Health Maintenance Care Teams Underground Mine Machinery Mechanic Relationship Specialty Start Date End Date Efrem Carranza MD [address] [place], [place] [address] PCP - General Internal Medicine 01/12/23 [place] [address] [place] [address] Referring Provider Dermatology 01/11/23
--- OUTSIDE RECORDS SUMMARY | 2024-08-20 09:29 | XMS_ITS | Encounter Summary ---
Author Organization [facility] Address [address] [place] [address] Care Team Providers Care Transcriptionist Name Role Phone Tracy Weber MD Primary Care Provider [phone] Fely Quintanilla MD Unavailable Efrem Carranza MD Primary Care Provider [phone] Encounter Details Date Type Department Care Team (Late st Contact Info) Description 12/29/2021 E-Advice [facility] [place] [address] [place] [address] [place] [address] Tb skin test Social History Tobacco Use [...] on filedocumented in this encounter Care Teams Transcriptionist Relationship Specialty [place] [address] [place] [address] PCP - General Family Practice 12/29/21 01/11/23 Efrem Carranza MD [address] [place] [address] PCP - General Internal Medicine 01/12/23 [place] [address] [place] [address] Referring Provider Dermatology 01/11/23 documented as of this encounter
--- OUTSIDE RECORDS SUMMARY | 2024-08-20 09:29 | XMS_ITS | Clinical Summary ---
Author Organization [facility] Address [address] [place] [address] Care Team Providers Care Bed Operator Name Role Phone Unavailable Primary Care Provider [...]
--- OUTSIDE RECORDS SUMMARY | 2024-08-20 09:29 | XMS_ITS | Clinical Summary ---
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
--- NOTE | 2024-08-20 09:33 | ECG_ITS ---
Test Date: 2024-08-20 09:44:07 Measurements Intervals [place] Rate: 73 P: 51 PA: 162 QRS: 84 QRSD: 82 T: 42 QT: 370 QTc: 409 Interpretive Statements SINUS RHYTHM No previous ECG available for comparison Electronically Signed On 08-21-2024 11:10:30 CDT by Shay George M.D.
[2024-08-20 09:48] VITALS: BP 144/83; PULSE 77; RESP 15; O2SAT 100
[2024-08-20 09:52] LABS: BEDSIDEPREGUCG Negative (Negative)
[2024-08-20 09:57] LABS: Basophils Absolute Auto 0.1 K/mm3 (0.0-0.1); Basophils Percent Auto 0.6 % (0.2-1.2); Eosinophils Absolute Auto 0.5 K/mm3 (0-0.3); Eosinophils Percent Auto 5.6 % (0-4.4); Hematocrit 39.2 % (37.0-47.0); Hemoglobin 13.1 g/dL (12.0-15.0); Immature Granulocyte Absolute 0.02 K/mm3 (0.00-0.031); Immature Granulocyte Percent A 0.2 % (0-0.5); Lymphocytes Absolute Auto 3.53 K/mm3 (0.9-3.2); Lymphocytes Percent Auto 42.3 % (18.3-44.2); Mean Corpuscular HGB Conc 33.4 g/dl (32-36); Mean Corpuscular Hemoglobin 26.7 pg (26-34); Mean Corpuscular Volume 79.8 fl (80-100); Mean Platelet Volume 9.7 fl (7.4-10.4); Monocytes Absolute Auto 0.5 K/mm3 (0.1-0.6); Monocytes Percent Auto 6.5 % (2.6-8.5); Neutrophils Absolute Auto 3.7 K/mm3 (1.3-6.7); Neutrophils Percent Auto 44.8 % (45.5-73.1); Platelet Count Result 227 k/mm3 (150-375); Red Blood Count 4.91 M/mm3 (4.2-5.4); Red Cell Distribution Width 13.2 % (11.5-14.5); White Blood Count 8.3 K/mm3 (4.5-10.0)
[2024-08-20 09:59] LABS: Add Urine Microscopic? NO; Appearance Urine Clear (Clear); Bilirubin Urine Negative (Negative); Blood Urine Negative (Negative); Color Urine Yellow (Yellow); Glucose Urine UA Negative (Negative); Ketones Urine Negative (Negative); Leukocyte Esterase Ur Negative LEU/UL (Negative); Nitrate Urine Negative (Negative); Protein Urine Negative (Negative); Specific Grav Ur 1.019 (1.001-1.035); Urobilinogen Urine 0.2 mg/dL (<2.0); pH Urine 5.5 (5.0-9.0)
[2024-08-20 10:08] LABS: Alanine Aminotransferase 64 U/L (6-35); Albumin Level 5.1 g/dL (3.5-5.1); Alkaline Phosphatase 63 U/L (38-126); Anion Gap 14 mmol/L (4-12); Aspartate Amino Transferase 38 U/L (14-36); Bilirubin,Total 0.5 mg/dL (0.2-1.3); Blood Urea Nitrogen 10 mg/dL (7-17); Calcium 9.7 mg/dL (8.4-10.2); Carbon Dioxide 24 mmol/L (22-30); Chloride 101 mmol/L (98-107); Estimated CRCL calculation 75 ml/min; Estimated Glomerular Filt Rate > 60; Glucose 94 mg/dL (65-110); Potassium 3.9 mmol/L (3.4-5.0); Sodium 139 mmol/L (137-145)
[2024-08-20 11:50] VITALS: BP 124/92; PULSE 81; RESP 15; TEMP 36.4; O2SAT 100
== END 2024-08-20 11:55 | disposition home or self-care (01) ==
PROVIDERS: Emergency Provider Emergency Medicine
DX: S49.92XA Unspecified injury of left shoulder and upper arm, initial encounter (principal); V47.5XXA Car driver injured in collision with fixed or stationary object in traffic accident, initial encounter
CPT/HCPCS: 36415; 70450; 71260; 72125; 74177; 80053; 81003; 81025; 85025; 93005; 99284; Q9967